=== PATIENT | female | born 1945 | race Hispanic/Latino ===

== ENCOUNTER 2020-08-14 10:33 | Emergency (ER) | payer MEDICARE ==
[~2020-08-14] VITALS: Ht 165.1 cm; Wt 62.6 kg
[2020-08-14] MEDS ORDERED: ACETAMINOPHEN500 MG PO (11:36)
[2020-08-14] MEDS ORDERED: CEFDINIR300 MG PO (11:36)
== END 2020-08-14 11:45 | disposition home or self-care (01) ==
LOC: FSED 11:06
DX: N30.00 Acute cystitis without hematuria (principal); E11.9 Type 2 diabetes mellitus without complications; F03.90 Unspecified dementia, unspecified severity, without behavioral disturbance, psychotic disturbance, mood disturbance, and anxiety
CPT/HCPCS: 81003; 99283

== ENCOUNTER 2024-11-20 16:43 | Emergency (ER) | payer MEDICARE ==
[~2024-11-20] VITALS: Ht 162.6 cm; Wt 68.5 kg
[~2024-11-20 16:43] MED LIST: ACETAMINOPHEN500 MG PO; CEFDINIR300 MG PO
[2024-11-20] MEDS ORDERED: PYRIDIUM100 MG PO (17:43)
[2024-11-20] MEDS ORDERED: MACROBID 100 M100 MG PO (17:43)
[2024-11-20 17:58] VITALS: PULSE 66; RESP 16; TEMP 97.5; O2SAT 99
[2024-11-20] MEDS ORDERED: PREDNISONE5 MG PO (20:49)
[2024-11-20] MEDS ORDERED: MEMANTINE HCL10 MG (20:49)
[2024-11-20] MEDS ORDERED: ZETIA10 MG PO (20:49)
[2024-11-20] MEDS ORDERED: ISOSORBIDE MONO30 MG PO (20:49)
[2024-11-20] MEDS ORDERED: METFORMIN HCL850 MG PO (20:49)
[2024-11-20] MEDS ORDERED: PROTONIX20 MG PO (20:49)
[2024-11-20] MEDS ORDERED: ELIQUIS5 MG PO (20:49)
[2024-11-20] MEDS ORDERED: ATORVASTATIN CA10 MG PO (20:49)
[2024-11-20] MEDS ORDERED: SPIRONOLACTONE25 MG PO (20:49)
[2024-11-20] MEDS ORDERED: LOSARTAN POTASS25 MG PO (20:49)
[2024-11-20] MEDS ORDERED: ASPIRIN EC81 MG PO (20:49)
[2024-11-20] MEDS ORDERED: CARBAMAZEPINE200 MG PO (20:49)
[2024-11-20] MEDS ORDERED: MONTELUKAST SOD10 MG PO (20:49)
== END 2024-11-20 17:58 | disposition home or self-care (01) ==
LOC: FSED 16:53
DX: R30.0 Dysuria (principal); N39.0 Urinary tract infection, site not specified; I10 Essential (primary) hypertension; E11.9 Type 2 diabetes mellitus without complications; G30.9 Alzheimer's disease, unspecified; I50.9 Heart failure, unspecified; M06.9 Rheumatoid arthritis, unspecified; F02.80 Dementia in other diseases classified elsewhere, unspecified severity, without behavioral disturbance, psychotic disturbance, mood disturbance, and anxiety
CPT/HCPCS: 81003; 87086; 87186; 99283